=== PATIENT | female | born 1940 | race Caucasian/White ===

== ENCOUNTER → 2017-11-19 00:20 | Outpatient (CLI) | payer MEDICARE, BC, SELFPAY ==
--- NOTE | 2017-11-19 14:30 | DI.REPORT_ITS ---
SYMPTOMS/DIAGNOSIS: LUMBAR RADICULOPATHY, M54.16, 2 MONTHS OF LOW BACK PAIN AND LEFT LEG PAIN MRI OF THE LUMBAR SPINE: Comparison is made with plain films dated September,. T1, T2 and STIR sagittal and T1 and T2 axial sequences were performed. The vertebral bodies are well maintained in height. There is minimal disc bulging at L1-2 through L3 -4. At L4-5, there is mild concentric disc bulging. There are facet degenerative changes, which are prominent, as well as ligamentous hypertrophy, which caused mild spondylolisthesis. There is also severe central canal stenosis and mild bilateral neural foraminal narrowing. At L5-S1, there is marked loss of disc height, endplate osteophytes and concentric disc bulging. There are mild facet degenerative changes and mild ligamentous hypertrophy. There is mild right neural foraminal narrowing. Bilateral renal cysts are incidentally noted. The aorta is normal in diameter. IMPRESSION: Severe central canal stenosis and mild bilateral neural foraminal narrowing at L4-5, mainly secondary to a combination of facet degenerative changes and ligamentous hypertrophy.
== END ==
PROVIDERS: PCP Family Medicine; Visit Provider Family Medicine
DX: M54.16 Radiculopathy, lumbar region (principal); M47.26 Other spondylosis with radiculopathy, lumbar region; M48.061 Spinal stenosis, lumbar region without neurogenic claudication
CPT/HCPCS: 72148

== ENCOUNTER 2018-01-08 00:28 | Outpatient (CLI) | payer MEDICARE, BC, SELFPAY ==
--- NOTE | 2018-01-08 10:00 | DI.MRI_ITS ---
SYMPTOMS/DIAGNOSIS: LT HIP PAIN, M25.552 MRI OF THE LEFT HIP: Routine noncontrast examination was performed. There is T 2 hyperintense signal seen at the insertion site of the gluteus medius tendon consistent with a partial tear. There also appears to be hyperintense signal at the insertion site of the gluteus minimus tendon onto to the greater trochanter consistent with a tear. There is fluid seen in the soft tissues lateral to the greater trochanter. The gluteus medius and gluteus minimus muscles show normal signal and size. No significant muscular fatty atrophy is present. There is normal signal in the bone marrow. No evidence of an occult fracture or avascular necrosis is seen. The articular cartilage at the left hip appears well maintained. The acetabular labrum appears grossly unremarkable on this noncontrast examination. There is a small amount of fluid in the joint space. The remaining visualized tendons and muscles are grossly unremarkable. IMPRESSION: Findings suggestive of tears of both the gluteus medius and gluteus minimus tendons at the insertion onto the greater trochanter. Small amount of adjacent edema in the soft tissues adjacent to the greater trochanter.
== END 2018-01-08 00:48 ==
PROVIDERS: PCP Family Medicine; Visit Provider Neurological Surgery
DX: M25.552 Pain in left hip (principal); S76.012A Strain of muscle, fascia and tendon of left hip, initial encounter; R60.0 Localized edema; Y99.9 Unspecified external cause status
CPT/HCPCS: 73721

== ENCOUNTER → 2018-02-17 10:21 | Outpatient (BNVA) | payer MEDICARE, BC, SELFPAY | PROVIDERS: PCP Family Medicine; Referring Provider Family Medicine; Visit Provider Student in an Organized Health Care Education/Training Program | DX: M70.62 Trochanteric bursitis, left hip (principal); M76.892 Other specified enthesopathies of left lower limb, excluding foot | CPT/HCPCS: 99204; 99214 ==

== ENCOUNTER → 2018-03-08 09:28 | Outpatient (BNVA) | payer MEDICARE, BC, SELFPAY | PROVIDERS: PCP Family Medicine; Referring Provider Family Medicine; Visit Provider Student in an Organized Health Care Education/Training Program | DX: M76.892 Other specified enthesopathies of left lower limb, excluding foot (principal); M70.62 Trochanteric bursitis, left hip | CPT/HCPCS: 20610; 99213; J1040 ==

== ENCOUNTER → 2018-04-21 09:33 | Outpatient (BNVA) | payer MEDICARE, BC, SELFPAY | PROVIDERS: PCP Family Medicine; Referring Provider Family Medicine; Visit Provider Student in an Organized Health Care Education/Training Program | DX: M76.892 Other specified enthesopathies of left lower limb, excluding foot (principal); M70.62 Trochanteric bursitis, left hip; S76.012D Strain of muscle, fascia and tendon of left hip, subsequent encounter; X58.XXXD Exposure to other specified factors, subsequent encounter | CPT/HCPCS: 99213 ==

== ENCOUNTER → 2018-06-23 09:09 | Outpatient (BNVA) | payer MEDICARE, BC, SELFPAY | PROVIDERS: PCP Family Medicine; Referring Provider Family Medicine; Visit Provider Student in an Organized Health Care Education/Training Program | DX: M70.62 Trochanteric bursitis, left hip (principal); S76.012D Strain of muscle, fascia and tendon of left hip, subsequent encounter; M76.892 Other specified enthesopathies of left lower limb, excluding foot; X58.XXXD Exposure to other specified factors, subsequent encounter | CPT/HCPCS: 99213 ==

== ENCOUNTER 2018-07-16 09:01 | Outpatient (CLI) | payer MEDICARE, BC, SELFPAY ==
--- NOTE | 2018-07-16 09:50 | W.PREOPHP ---
Date of service: 07/16/18 Time of Service: 08:51 Assessment and Plan (1) Tear of left gluteus minimus tendon: Current visit: Yes Status: Chronic Qualifiers: Encounter type: subsequent encounter Qualified Code(s): S76.012D - Strain of muscle, fascia and tendon of left hip, subsequent encounter (2) Tendinitis involving left hip abductors: Current visit: Yes Status: Chronic The patient desires a review of the surgical procedure today questioning the need for an IT band tenotomyas she read her portal notes and the mechanism to reattach the left hip abductors with subsequent activity level after the surgery. Her surgery will be scheduled on 07/22/2018 to relieve her lateral hip pain and hopefully improve her endurance and strength post reattachment of the abductors to allow her to continue with her walking and trekking passions. (3) Trochanteric bursitis, left hip: Current visit: Yes Status: Chronic History of Present Illness Chief Complaint: persistent left hip pain and weakness Narrative: alexandro is a physically active 78-year-old who relates a 1 year history of lateral left lateral hip pain that began after she had to perform intense snowplowing trying to negotiate an icy hill while out country skiing. She thought the discomfort would eventually resolve but sought medical attention when the episodic pain prevented her from climbing and trekking up local mountains. She has had an x-rays and an MRI of her hip that showed a left abductor muscle tear. She has gone through several rounds of PT and had a trochanteric bursa injection that provided excellent relief of discomfort but it was short-lived only lasting from mid February to April. She is troubled by episodic sleep disturbance and episodic pain climbing stairs and hills as well as simple walking on flat beach.. In December she plans a trip to [place] where she anticipates there will be a lot of walking thus she desires a surgical intervention to relieve her chronic episodic lateral discomfort. Pertinent Surgical Information Denies previous medical history of: stroke, TIA, [place], use of sublingual nitroglycerin, GERD, seizures, diabetes, thyroid disease, sleep apnea, liver disease, hepatitis, hematologic disorders Denies previous complications from surgery or anesthesic agents with respect to high fever, prolonged vomiting and difficulty waking up Review of Systems Constitutional Denies fever(s) and Denies headache(s) ENT Denies headache(s), Denies nasal congestion, Denies nasal discharge and Denies sore throat Cardiovascular Denies chest pain, Denies chest pain with activity, Denies palpitations, Denies dyspnea on exertion, Denies orthopnea and Denies paroxysmal nocturnal dyspnea Respiratory Denies cough, Denies excessive phlegm production, Denies pain on inspiration, Denies dyspnea on exertion and Denies wheezing Gastrointestinal Denies abdominal pain, Denies melena, Denies hematochezia, Denies nausea and Denies vomiting Genitourinary Denies hematuria, Denies urinary frequency and Denies dysuria Comments: Denies burning sensation with urination Musculoskeletal Reports as per HPI Neurologic Denies headache(s) Psychiatric Denies anxiety and Denies depression Endocrine Denies palpitations Comments: Denies any unplanned weight changes Allergic/Immunologic Denies wheezing PFSH Medical History Trochanteric bursitis, left hip (Chronic) Tendinitis involving left hip abductors (Chronic) Tear of left gluteus minimus tendon (Chronic) Toenail deformity (Chronic 04/04/14) 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) Sensorineural hearing loss, bilateral (Chronic 06/25/15) Osteoporosis (Chronic) Malignant neoplasm of breast (female), unspecified site (Inactive 03/19/06) Diverticulosis (Chronic) Degeneration, intervertebral disc, cervical (Chronic 03/19/03) Acid indigestion (Inactive) Degenerative disc disease, cervical Diverticulosis Frequent UTI Impacted cerumen of both ears Left hip pain Malignant neoplasm of breast Nail deformity Osteoporosis Sensorineural hearing loss (SNHL), bilateral Spinal stenosis of lumbar region with neurogenic claudication Toenail deformity Surgical History History of appendectomy (Chronic) History of colonoscopy (Chronic) Breast, Mastectomy (Inactive) Cholecystectomy (Inactive ~1997) Fracture, Closed Treatment Family History Mother No problems noted. Father No problems noted. Brother No problems noted. Daughter No problems noted. Daughter No problems noted. Son No problems noted. Other Cancer Social History Smoking/Tobacco Use Status: Never Alcohol Intake: current Alcohol Intake frequency: a few times a week Alcohol type: beer and wine Drug use: Never Substance use type: does not use Pets and animals: No What type of physical activity do you participate in: walking Duration: decline to answer Frequency: decline to answer Zena/Anglican: Rastafarian Special zena needs: No Meds Home Medications Medication Instructions Recorded Confirmed Type acetaminophen 500 mg PO Q3H PRN tab-cap 12/09/17 07/16/18 History ibuprofen 400 mg PO Q4H PRN tab-cap 12/09/17 07/16/18 History adjuvant AS01B (PF), component 1 ml IM ONCE #0.5 ml 03/04/18 06/23/18 Rx vial 1 of 2 intramuscular suspension aspirin 325 mg PO PRN PRN 07/16/18 07/16/18 History Allergies Allergy/AdvReac Type Severity Reaction Status Date / Time neomycin sulfate Allergy Severe RASH Unverified 06/23/18 09:10 [From Neosporin ([id number])] Exam Const General: cooperative HENMT Throat: posterior oropharynx normal Eyes General: appearance normal, both eyes and all related structures Conjunctivae: conjunctivae normal Sclera: sclerae normal Neck Neck: no JVD Carotids: normal carotid upstroke and no bruits Resp Effort & Inspection: normal respiratory effort and able to speak in complete sentences Auscultation: clear to auscultation bilaterally, no rales, no rhonchi and no wheezes Cardio Rate: regular rate Heart Sounds: S1 normal, S2 normal and no murmurs Bruits: no abdominal aortic bruits Pulses: normal peripheral pulses Other: No pulsatile mass noted with palpation over the abdominal aorta General: No CVA tenderness Extrem General: no pedal edema Other: left hip nonirritable with flexion intact 90 degrees,nonirritable inter and external rotation.mild palpation tenderness laterally. no pain with resisted abduction.
--- NOTE | 2018-07-16 10:05 | HPE_ITS ---
Date of service: 07/16/18 Time of Service: 08:51 Assessment and Plan (1) Tear of left gluteus minimus tendon: Current visit: Yes Status: Chronic Qualifiers: Encounter type: subsequent encounter Qualified Code(s): S76.012D - Strain of muscle, fascia and tendon of left hip, subsequent encounter (2) Tendinitis involving left hip abductors: Current visit: Yes Status: Chronic The patient desires a review of the surgical procedure today questioning the need for an IT band tenotomyas she read her portal notes and the mechanism to reattach the left hip abductors with subsequent activity level after the surgery. Her surgery will be scheduled on 07/22/2018 to relieve her lateral hip pain and hopefully improve her endurance and strength post reattachment of the abductors to allow her to continue with her walking and trekking passions. (3) Trochanteric bursitis, left hip: Current visit: Yes Status: Chronic History of Present Illness Chief Complaint: persistent left hip pain and weakness Narrative: alexandro is a physically active 78-year-old who relates a 1 year history of lateral left lateral hip pain that began after she had to perform intense snowplowing trying to negotiate an icy hill while out country skiing. She thought the discomfort would eventually resolve but sought medical attention when the episodic pain prevented her from climbing and trekking up local mountains. She has had an x- rays and an MRI of her hip that showed a left abductor muscle tear. She has gone through several rounds of PT and had a trochanteric bursa injection that provided excellent relief of discomfort but it was short-lived only lasting from mid February to April. She is troubled by episodic sleep disturbance and episodic pain climbing stairs and hills as well as simple walking on flat beach.. In December she plans a trip to [place] where she anticipates there will be a lot of walking thus she desires a surgical intervention to relieve her chronic episodic lateral discomfort. Pertinent Surgical Information Denies previous medical history of: stroke, TIA, [place], use of sublingual nitroglycerin, GERD, seizures, diabetes, thyroid disease, sleep apnea, liver disease, hepatitis, hematologic disorders Denies previous complications from surgery or anesthesic agents with respect to high fever, prolonged vomiting and difficulty waking up Review of Systems Constitutional Denies fever(s) and Denies headache(s) ENT Denies headache(s), Denies nasal congestion, Denies nasal discharge and Denies sore throat Cardiovascular Denies chest pain, Denies chest pain with activity, Denies palpitations, Denies dyspnea on exertion, Denies orthopnea and Denies paroxysmal nocturnal dyspnea Respiratory Denies cough, Denies excessive phlegm production, Denies pain on inspiration, Denies dyspnea on exertion and Denies wheezing Gastrointestinal Denies abdominal pain, Denies melena, Denies hematochezia, Denies nausea and Denies vomiting Genitourinary Denies hematuria, Denies urinary frequency and Denies dysuria Comments: Denies burning sensation with urination Musculoskeletal Reports as per HPI Neurologic Denies headache(s) Psychiatric Denies anxiety and Denies depression Endocrine Denies palpitations Comments: Denies any unplanned weight changes Allergic/Immunologic Denies wheezing PFSH Medical History Trochanteric bursitis, left hip (Chronic) Tendinitis involving left hip abductors (Chronic) Tear of left gluteus minimus tendon (Chronic) Toenail deformity (Chronic 04/04/14) 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) Sensorineural hearing loss, bilateral (Chronic 06/25/15) Osteoporosis (Chronic) Malignant neoplasm of breast (female), unspecified site (Inactive 03/19/06) Diverticulosis (Chronic) Degeneration, intervertebral disc, cervical (Chronic 03/19/03) Acid indigestion (Inactive) Degenerative disc disease, cervical Diverticulosis Frequent UTI Impacted cerumen of both ears Left hip pain Malignant neoplasm of breast Nail deformity Osteoporosis Sensorineural hearing loss (SNHL), bilateral Spinal stenosis of lumbar region with neurogenic claudication Toenail deformity Surgical History History of appendectomy (Chronic) History of colonoscopy (Chronic) Breast, Mastectomy (Inactive) Cholecystectomy (Inactive ~1997) Fracture, Closed Treatment Family History Mother No problems noted. Father No problems noted. Brother No problems noted. Daughter No problems noted. Daughter No problems noted. Son No problems noted. Other Cancer Social History Smoking/Tobacco Use Status: Never Alcohol Intake: current Alcohol Intake frequency: a few times a week Alcohol type: beer and wine Drug use: Never Substance use type: does not use Pets and animals: No What type of physical activity do you participate in: walking Duration: decline to answer Frequency: decline to answer Zena/Sabianism: Congregational Special zena needs: No Meds Home Medications Medication Instructions Recorded Confirmed Type acetaminophen 500 mg PO Q3H PRN tab-cap 12/09/17 07/16/18 History ibuprofen 400 mg PO Q4H PRN tab-cap 12/09/17 07/16/18 History adjuvant AS01B (PF), component 1 ml IM ONCE #0.5 ml 03/04/18 06/23/18 Rx vial 1 of 2 intramuscular suspension aspirin 325 mg PO PRN PRN 07/16/18 07/16/18 History Allergies Allergy/AdvReac Type Severity Reaction Status Date / Time neomycin sulfate Allergy Severe RASH Unverified 06/23/18 09:10 [From Neosporin ([id number])] Exam Const General: cooperative HENMT Throat: posterior oropharynx normal Eyes General: appearance normal, both eyes and all related structures Conjunctivae: conjunctivae normal Sclera: sclerae normal Neck Neck: no JVD Carotids: normal carotid upstroke and no bruits Resp Effort & Inspection: normal respiratory effort and able to speak in complete sentences Auscultation: clear to auscultation bilaterally, no rales, no rhonchi and no wheezes Cardio Rate: regular rate Heart Sounds: S1 normal, S2 normal and no murmurs Bruits: no abdominal aortic bruits Pulses: normal peripheral pulses Other: No pulsatile mass noted with palpation over the abdominal aorta General: No CVA tenderness Extrem General: no pedal edema Other: left hip nonirritable with flexion intact 90 degrees,nonirritable inter and external rotation.mild palpation tenderness laterally. no pain with resisted abduction.
== END 2018-07-16 09:21 ==
PROVIDERS: PCP Family Medicine; Visit Provider Student in an Organized Health Care Education/Training Program
DX: S76.012D Strain of muscle, fascia and tendon of left hip, subsequent encounter (principal); M76.892 Other specified enthesopathies of left lower limb, excluding foot; M70.62 Trochanteric bursitis, left hip; Z01.818 Encounter for other preprocedural examination

== ENCOUNTER → 2018-09-20 08:47 | Outpatient (BNVA) | payer MEDICARE, BC, SELFPAY | PROVIDERS: PCP Family Medicine; Referring Provider Family Medicine; Visit Provider Student in an Organized Health Care Education/Training Program | DX: M70.62 Trochanteric bursitis, left hip (principal); S76.012A Strain of muscle, fascia and tendon of left hip, initial encounter; S80.02XA Contusion of left knee, initial encounter; W19.XXXA Unspecified fall, initial encounter | CPT/HCPCS: 99213 ==

== ENCOUNTER 2019-03-07 15:45 | Outpatient (REF) | payer MEDICARE, BC, SELFPAY ==
--- NOTE | 2019-03-07 13:45 | SKI_PTH ---
PATIENT: Isabelle Christopher LOC: [facility] U#:[id number] AGE/SX: 78/F ROOM: RE03/07/[address]: Olivia Carlin MD, DC : 1940 BED: DIS: 03/07/2019 SPEC #: [id number] RECD: 03/08/19 12:28 STATUS: AKIKO REQ #: [id number] HO: 03/07/19 13:[address]: Olivia Carlin DEPT: Surgical Specimen RECD BY: Amie Haynes Tissues: 1 - SKIN CYST/TAG/DEBRIDEMENT Procedures: GROSS AND MICRO LEVEL 3 Comments: [id number]
== END 2019-03-07 16:05 ==
LOC: LBN 15:45
PROVIDERS: PCP Family Medicine; Visit Provider Family Medicine
DX: L82.1 Other seborrheic keratosis (principal)
CPT/HCPCS: 88304

== ENCOUNTER 2021-04-18 02:35 | Outpatient (CLI) | payer MEDICARE, BC, SELFPAY ==
--- NOTE | 2021-04-18 07:00 | DI.RAD_ITS ---
Exam(s) XR KNEE LT 3V AP,LAT,EMILEE EXAM: XR KNEE LT 3V AP,LAT,EMILEE CLINICAL HISTORY: left knee pain,m25.562. TECHNIQUE: 2D digital imaging was performed. COMPARISON: No exams were available for comparison FINDINGS: There is no evidence of acute fracture or joint effusion. There are tricompartmental degenerative ch anges, most evident in the lateral compartment where there is moderate joint space narrowing and carla inal osteophytes. Mild joint space narrowing noted in the other 2 compartments. Bone density is age -appropriate and there are no significant osseous lesions. IMPRESSION: Degenerative changes as described above. No joint effusion evident. DATA REPOSITORY: RADIATION DOSE DELIVERED:
== END 2021-04-18 02:55 ==
PROVIDERS: PCP Family Medicine; Visit Provider Family Medicine
DX: M25.562 Pain in left knee (principal); M17.12 Unilateral primary osteoarthritis, left knee
CPT/HCPCS: 36415; 73562; 84443

== ENCOUNTER 2021-04-18 03:13 | Outpatient (CLI) | payer MEDICARE, BC, SELFPAY | END 2021-04-18 03:14 | disposition home or self-care (01) | LOC: LBO 03:13 | PROVIDERS: PCP Family Medicine; Visit Provider Family Medicine | DX: I10 Essential (primary) hypertension (principal) | CPT/HCPCS: 36415; 84443 ==

== ENCOUNTER → 2021-05-31 09:17 | Outpatient (BNVA) | payer MEDICARE, BC, SELFPAY | PROVIDERS: PCP Family Medicine; Referring Provider Family Medicine; Visit Provider Student in an Organized Health Care Education/Training Program | DX: M17.12 Unilateral primary osteoarthritis, left knee (principal) | CPT/HCPCS: 99214 ==

== ENCOUNTER 2022-05-14 02:49 | Outpatient (CLI) | payer MEDICARE, BC, SELFPAY ==
[2022-05-15 19:29] LABS: Thyroglobulin Antibody 183 U/mL (<=60)
== END 2022-05-14 02:50 | disposition home or self-care (01) ==
LOC: LBO 02:49
PROVIDERS: PCP Family Medicine; Visit Provider Family Medicine
DX: L60.8 Other nail disorders (principal); R68.89 Other general symptoms and signs; C50.911 Malignant neoplasm of unspecified site of right female breast; I10 Essential (primary) hypertension
CPT/HCPCS: 36415; 84443; 86800

== ENCOUNTER 2022-05-22 04:24 | Outpatient (CLI) | payer MEDICARE, BC, SELFPAY ==
[2022-05-22 16:02] LABS: TSH (W/Ref FT4) 3.03 uIU/mL (0.36-3.74)
[2022-05-22 21:53] LABS: T3,Free 3.2 pg/mL (2.8-5.3)
[2022-05-22 22:14] LABS: Thyroglobulin Antibody 169 U/mL (<=60)
[2022-05-23 15:38] LABS: Thyroglobulin Antibody 5.5 IU/mL (<1.8); Thyroglobulin Tumor Marker 22 ng/mL
== END 2022-05-22 04:25 | disposition home or self-care (01) ==
LOC: LBO 04:24
PROVIDERS: PCP Family Medicine; Visit Provider Family Medicine
DX: R68.89 Other general symptoms and signs (principal); R79.89 Other specified abnormal findings of blood chemistry
CPT/HCPCS: 36415; 84432; 84439; 84443; 84481; 86800

== ENCOUNTER 2022-08-11 01:02 | Outpatient (CLI) | payer MEDICARE, BC, SELFPAY ==
--- NOTE | 2022-08-11 07:15 | DI.US_ITS ---
Exam(s) US THYROID EXAM: US THYROID CLINICAL HISTORY: abnl thyroid function tests,r94.6. TECHNIQUE: Ultrasound thyroid performed using standard protocol. COMPARISON: No exams were available for comparison FINDINGS: ISTHMUS: 2.9 mm RIGHT LOBE: Size: 4.5 x 1.7 x 1.6 cm Echogenicity: Mild heterogeneous echogenicity. Vascularity: There is symmetric increased vascularity of the thyroid gland. Nodules: There is a 0.9 x 0.9 x 1 cm solid isoechoic nodule present. There do appear to be punctate echogenic foci present. The findings are consistent with a TI rads level 4 nodule. Due to its size, follow-up is recommended. There are 2 other nodules in the right lobe each less than 1 cm. Due to their size, no follow-up or biopsy is recommended. LEFT LOBE: Size: 4.4 x 1.5 x 1.5 cm Echogenicity: Normal. Vascularity: There is symmetric increased vascularity of the thyroid gland. Nodules: There is a less than 1 cm solid isoechoic nodule in the left lobe. Due to its size, no foll ow-up or biopsy is recommended. OTHER FINDINGS: None. IMPRESSION: 1. Multinodular thyroid gland. However, only 1 nodule requires follow-up. There is a 1 cm nodule in the right lobe which is a TI rads level 4 nodule. Due to its size, follow-up is recommended. 2. Overall increased vascularity of the thyroid gland. Please correlate with the patient's thyroid f unction levels. This can be seen with thyroiditis. DATA REPOSITORY:
== END 2022-08-11 01:22 ==
LOC: DI 01:02
PROVIDERS: PCP Family Medicine; Visit Provider Family Medicine
DX: R94.6 Abnormal results of thyroid function studies (principal)
CPT/HCPCS: 76536

== ENCOUNTER → 2023-07-31 00:37 | Outpatient (CLI) | payer MEDICARE, BC, SELFPAY ==
--- NOTE | 2023-07-31 | DI.US_ITS ---
Exam(s) US BREAST LT COMPLETE MG MAMMO SCREENING 60 MIN DUR EXAM: MG MAMMO SCREENING 60 MIN DUR AND COMPLETE LEFT BREAST ULTRASOUND CLINICAL HISTORY: breast cancer screening,PERSONAL H/O BREAST CA,Z85.3. TECHNIQUE: LEFT BREAST full field digital CC and MLO mammographic images were obtained with 3D tomos ynthesis and utilizing computer aided detection (CAD). Also performed spot compression view of the le ft breast because of finding of a nodular density on screening mammogram. Complete left breast ultrasound was performed including all 4 quadrants as well as the left axillary region. COMPARISON: Prior mammograms were reviewed. This patient underwent right breast mastectomy in 2006 at age 66 FINDINGS: LEFT BREAST MAMMOGRAM: On the CC 3D view there is a slightly lobulated noncalcified nodule measuring 9 by 8 mm slightly medi al of center located approximately 4 cm in from the nipple. Spot compression view and ultrasound rec ommended. There are no malignant-appearing microcalcification groups in this region or elsewhere in the left breast. There is no significant architectural distortion nor skin thickening-retraction. We proceeded with ultrasound... COMPLETE LEFT BREAST ULTRASOUND: At the 5 o'clock position there is a 3 millimeter benign septated microcyst At the 7 o'clock position there is an 8 x 5 millimeter lobulated benign microcyst, this corresponding to the finding on the mammogram. Most importantly, there are no solid lesions in all 4 quadrants. Scanning of the left axilla is negative for adenopathy. IMPRESSION: New left breast mammographic finding which corresponds to a benign 8 x 5 mm microcyst on today's ultr asound. There are no solid lesions evident on today's complete left breast ultrasound Appropriate follow-up, as discussed by myself with the patient today, is to keep her on her yearly ma mmogram schedule, with earlier imaging if a self detected breast change is noted. BI-RADS Category 2 - Benign Findings Breast Density - Category B - Scattered areas of fibroglandular density Breast density Category C or D implies that the patient has dense breast tissue. Dense breast tissue can make it harder to find cancer on a mammogram. Dense breast tissue is also associated with an incr eased risk of breast cancer. This information about the result of the mammogram report was provided to the patient to raise their awareness. Use this report when you speak with the patient about their risks for breast cancer, which includes their family history. At that time, you may recommend additional screening tests (Ultrasoun d or MRI) as these tests may add significant information. A negative radiographic report should not delay biopsy if a dominant or clinically suspicious mass is present. Up to ten percent of cancers are not identified on mammography. A negative report may reinforce clinical impression. Adenosis and dense breasts may obscure an underlying neoplasm. False positive reports average 6 to 10%. Patient will receive a letter notifying them of these results.
== END ==
PROVIDERS: PCP Family Medicine; Visit Provider Family Medicine
DX: Z85.3 Personal history of malignant neoplasm of breast (principal); R92.8 Other abnormal and inconclusive findings on diagnostic imaging of breast; Z12.31 Encounter for screening mammogram for malignant neoplasm of breast
CPT/HCPCS: 76642; 77063; 77067

== ENCOUNTER 2023-08-05 04:20 | Outpatient (CLI) | payer MEDICARE, BC, SELFPAY ==
[2023-08-05 09:33] LABS: HCT 41.1 % (36.0-46.0); HGB 13.2 g/dL (11.2-15.7); MCH 31.7 pg (27.0-33.0); MCHC 32.1 % (32.0-36.0); MCV 99 fL (80-95); MPV 10.5 fL (8.0-11.0); Platelet Count 198 10^3/uL (130-400); RBC 4.17 10^6/uL (3.93-5.22); RDW-SD 46.1 fL; WBC 7.07 10^3/uL (4.4-10.8)
== END 2023-08-05 04:21 | disposition home or self-care (01) ==
LOC: LBO 04:20
PROVIDERS: PCP Family Medicine; Visit Provider Family Medicine
DX: R53.83 Other fatigue (principal)
CPT/HCPCS: 36415; 85027

== ENCOUNTER 2024-10-27 10:08 | Outpatient (CLI) | payer MEDICARE, BC, SELFPAY ==
[2024-10-27 12:36] LABS: HCT 39.2 % (36.0-46.0); HGB 12.6 g/dL (11.2-15.7); MCH 31.5 pg (27.0-33.0); MCHC 32.1 % (32.0-36.0); MCV 98 fL (80-95); MPV 10.9 fL (8.0-11.0); Platelet Count 179 10^3/uL (130-400); RBC 4.00 10^6/uL (3.93-5.22); RDW 12.8 % (11.7-14.6); RDW-SD 45.8 fL; WBC 5.39 10^3/uL (4.4-10.8)
[2024-10-27 12:54] LABS: INR 1.0 (0.9-1.1); Prothrombin Time 10.1 sec (9.1-11.1)
[2024-10-27 13:55] LABS: ALT 14 U/L (14-59); AST 24 U/L (15-37); Albumin 3.9 g/dL (3.4-5.0); Alkaline Phosphatase 89 U/L (46-116); Anion Gap 7.3 mmol/L (3-11); BUN 17 mg/dL (7-18); Bilirubin, Total 0.4 mg/dL (0.2-1.0); CO2 29.7 mmol/L (21.0-32.0); Calcium 9.2 mg/dL (8.5-10.1); Chloride 105 mmol/L (98-107); Estimated GFR 85.76 (mL/min/1.73m2); Glucose 100 mg/dL (74-106); Potassium 3.8 mmol/L (3.5-5.1); Sodium 142 mmol/L (136-145); TSH (W/Ref FT4) 3.14 uIU/mL (0.36-3.74); Total Protein 7.3 g/dL (6.4-8.2); Vitamin B12 238 pg/mL (193-986)
== END 2024-10-27 10:09 | disposition home or self-care (01) ==
LOC: LOS 10:09
PROVIDERS: PCP Family Medicine; Referring Provider Family Medicine; Visit Provider Family Medicine
DX: R53.83 Other fatigue (principal); R23.3 Spontaneous ecchymoses
CPT/HCPCS: 36415; 80053; 85027; 82607; 84443; 85610